=== PATIENT | female | born 2000 | race Caucasian/White ===

== ENCOUNTER 2021-08-18 18:31 | Emergency (ER) | payer MEDICAID ==
[~2021-08-18] VITALS: Ht 167.6 cm; Wt 79.0 kg
[2021-08-18 18:37] VITALS: BP 148/73
== END 2021-08-18 21:37 | disposition left against medical advice (07) ==
LOC: ER 18:31
DX: Z53.21 Procedure and treatment not carried out due to patient leaving prior to being seen by health care provider (principal)